=== PATIENT | female | born 1950 | race Caucasian/White ===

== ENCOUNTER 2023-09-13 12:11 | Inpatient (IN) | payer MEDICARE ==
[2023-09-13] VITALS (53 sets, daily range): BP systolic 74–139; BP diastolic 46–93; PULSE 81–157; RESP 22–39; O2SAT 84–98
[~2023-09-13] VITALS: Ht 182.9 cm; Wt 76.2 kg
[~2023-09-13 12:11] MED LIST: ALBU0.63 IH; AMLO-257 PO; ATOR10 PO; AZIT500T4 PO; BUDE0.5A3 IH; FLUT1BLS3 IH; LOSA50TA64 PO; OMEP40CA21 PO; PRAV40TA3 PO; PRED20B PO; ROCURONIUM BROMIDE 10MG/1ML 5ML VL IV ONE
[2023-09-13] MEDS: IPRATROPIUM/ALBUTEROL SULFATE 3 ML SOLUTION IH ONE (12:31)
[2023-09-13] MEDS: SOLU-MEDROL 125MG VIAL IVP ONE (12:34)
[2023-09-13 12:45] LABS: ABG BASE EXCESS -5.5 mmol/L (-2.0-3.0); ABG HCO3 19.7 mmol/L (21.0-28.0); ABG OXYGEN SATURATION 82.8 % (95.0-99.0); ABG PCO2 38 mmHg (32-45); ABG PH 7.335 (7.35-7.450); CARBON MONOXIDE 0.8; PO2, ARTERIAL BG 50.6 mmHg (83.0-108.0); VENT MODE, BG NC (ROOM AIR)
[2023-09-13 12:55] LABS: BASOPHILS # (AUTO) 0.02 K/uL (0.00-0.20); BASOPHILS % (AUTO) 0.3 % (0.0-5.0); EOSINOPHILS # (AUTO) 0.01 K/uL (0.00-0.70); EOSINOPHILS % (AUTO) 0.1 % (0.0-8.0); HEMATOCRIT 43.3 % (36-48); LYMPHOCYTES # (AUTO) 0.1 K/uL (1.0-4.8); LYMPHOCYTES % (AUTO) 1.2 % (21.0-51.0); MEAN CORPUSCULAR HEMOGLOBIN 30.2 pg (27.0-33.0); MEAN CORPUSCULAR HGB CONC 33.3 g/dL (32.0-36.0); MEAN CORPUSCULAR VOLUME 90.8 fL (79-99); MONOCYTES # (AUTO) 0.1 K/uL (0.1-1.0); MONOCYTES % (AUTO) 1.5 % (3.0-13.0); NEUTROPHILS % (AUTO) 95.5 % (40.0-77.0); PLATELET COUNT (AUTO) 163 K/uL (130-400); RED BLOOD CELL COUNT(AUTO) 4.77 MIL/uL (4.00-5.50); RED CELL DISTRIBUTION WIDTH 13.7 % (11.0-15.5); WHITE BLOOD COUNT (AUTO) 7.3 K/uL (4.8-10.8)
[2023-09-13 13:13] LABS: ALBUMIN 2.1 g/dL (3.5-5.0); BILIRUBIN,TOTAL 0.8 mg/dL (0.2-1.0); CREATININE 1.7 mg/dL (0.5-1.0); MAGNESIUM 1.4 mg/dL (1.80-2.40); POTASSIUM 3.6 mmol/L (3.5-5.1); TOTAL PROTEIN, SERUM 5.7 g/dL (6.0-8.3)
[2023-09-13] MEDS: CEFEPIME HCL 2 GM VIAL IVPB SCH (13:15)
[2023-09-13 13:26] LABS: B-TYPE NATRIURETIC PEPTIDE 167 pg/mL (0-100)
[2023-09-13] MEDS: AZITHROMYCIN 250 MG TABLET PO ONE (13:32)
[2023-09-13] MEDS: 0.9%NACL 1000ML 1,000 ML IV ONE ×2 (13:52→14:27)
[2023-09-13] MEDS: DILTIAZEM 25MG INJ IVP ONE ×2 (14:07→14:29)
[2023-09-13] MEDS ORDERED: ROCURONIUM BROMIDE 10MG/1ML 5ML VL IV ONE (14:11)
[2023-09-13] MEDS: MAGNESIUM 2GM PREMIX 50ML 50 ML IV ONE (14:45)
[2023-09-13] MEDS ORDERED: 0.9%NACL 50ML IV SCH (15:30)
[2023-09-13 15:41] LABS: ABG BASE EXCESS -7.9 mmol/L (-2.0-3.0); ABG HCO3 18.6 mmol/L (21.0-28.0); ABG OXYGEN SATURATION 87.2 % (95.0-99.0); ABG PCO2 42 mmHg (32-45); ABG PH 7.269 (7.35-7.450); PO2, ARTERIAL BG 59.2 mmHg (83.0-108.0); VENT MODE, BG HFNC (ROOM AIR)
[2023-09-13] MEDS: MIDAZOLAM HCL 1 MG/ML 2ML VIAL IVP ONE (15:50)
[2023-09-13] MEDS ORDERED: DEXMEDETOMIDINE 400MCG/NS100ML IV SCH (16:00)
[2023-09-13] MEDS: DEXMEDETOMIDINE 400MCG/NS100ML IV SCH (16:01)
[2023-09-13] MEDS: ASPIRIN 81MG CHEW TAB PO ONE (16:01)
[2023-09-13] MEDS: METOPROLOL TARTRATE 1 MG/ML 5ML VIAL IV PRN (16:12)
[2023-09-13] MEDS: ZOSYN 3.375GM +NS 50ML IVPB SCH (16:20)
[2023-09-13] MEDS: 0.9%NACL 1000ML 1,000 ML IV SCH (16:20)
[2023-09-13] MEDS ORDERED: ENOXAPARIN SODIUM 60 MG/0.6 ML SQ SCH (16:30)
[2023-09-13] MEDS: ASPIRIN 300 MG SUPPOSITORY PR SCH (16:30)
[2023-09-13 16:44] LABS: INR 0.97 (0.85-1.15); PROTHROMBIN TIME 11.5 SEC (9.6-11.6)
[2023-09-13 16:45] LABS: PARTIAL THROMBOPLASTIN TIME 35.5 SEC (26.3-35.5)
[2023-09-13 16:52] LABS: HEMOGLOBIN A1C 5.8 % (4.0-6.0)
[2023-09-13] MEDS: HEPARIN 25,000 UNITS/250ML D5W 250 ML IV SCH (17:23)
[2023-09-13] MEDS: HEPARIN 5,000 UNIT VIAL ONE (17:23)
[2023-09-13 17:48] LABS: THYROID STIMULATING HORMONE 1.85 uIU/mL (0.36-3.74)
[2023-09-13] MEDS ORDERED: IPRATROPIUM 0.5 MG/2.5 ML INH IH SCH (18:00)
[2023-09-13] MEDS ORDERED: SOLU-MEDROL 40MG VIAL IVP SCH (18:00)
[2023-09-13] MEDS: SOLU-MEDROL 40MG VIAL IVP SCH (18:16)
[2023-09-13] MEDS: IPRATROPIUM 0.5 MG/2.5 ML INH IH SCH (18:54)
[2023-09-13] MEDS: BUDESONIDE 0.5 MG/2 ML INH IH SCH (18:54)
[2023-09-13] MEDS: NOREPINEPHRIN 4MG/NS 250ML 250 ML IV ONE (18:56)
[2023-09-13] MEDS: ATORVASTATIN 40 MG TABLET PO SCH (20:37)
[2023-09-13] MEDS: NOREPINEPHRIN 4MG/NS 250ML 250 ML IV SCH (20:48)
[2023-09-13] MEDS: FAMOTIDINE 20MG VIAL IV SCH (21:00)
[2023-09-13] MEDS: HALOPERIDOL 1 MG TABLET PO SCH (22:00)
[2023-09-13 22:03] LABS: ABG BASE EXCESS -10.5 mmol/L (-2.0-3.0); ABG HCO3 17.7 mmol/L (21.0-28.0); ABG OXYGEN SATURATION 98.1 % (95.0-99.0); ABG PCO2 48 mmHg (32-45); ABG PH 7.188 (7.35-7.450); DEVICE COMMENT RR RN MANNY; PO2, ARTERIAL BG 138.4 mmHg (83.0-108.0)
[2023-09-13 23:53] LABS: PROTHROMBIN TIME 11.8 SEC (9.6-11.6)
[2023-09-13 23:56] LABS: ABG BASE EXCESS -9.1 mmol/L (-2.0-3.0); ABG HCO3 19.2 mmol/L (21.0-28.0); ABG OXYGEN SATURATION 97.2 % (95.0-99.0); ABG PCO2 51 mmHg (32-45); ABG PH 7.197 (7.35-7.450); DEVICE COMMENT RR RN MANNY; PO2, ARTERIAL BG 115.1 mmHg (83.0-108.0); VENT MODE, BG BIPAP 16,8 (ROOM AIR)
[2023-09-14] VITALS (143 sets, daily range): BP systolic 71–137; BP diastolic 34–118; PULSE 56–138; RESP 15–46; TEMP 98.6–98.7; O2SAT 89–98
[2023-09-14 00:17] LABS: PARTIAL THROMBOPLASTIN TIME 112.6 SEC (26.3-35.5)
[2023-09-14] MEDS: LACTATED RINGERS 1000ML 1,000 ML IV SCH (00:43)
[2023-09-14] MEDS: LACTATED RINGERS 1000ML 500 ML IV ONE (00:43)
[2023-09-14] MEDS: MAGNESIUM 2GM PREMIX 50ML 50 ML IV ONE (00:46)
[2023-09-14] MEDS: MAGNESIUM 2GM PREMIX 50ML 50 ML IV SCH (00:46)
[2023-09-14 03:15] LABS: ABG BASE EXCESS -7.7 mmol/L (-2.0-3.0); ABG HCO3 19.5 mmol/L (21.0-28.0); ABG OXYGEN SATURATION 98.5 % (95.0-99.0); ABG PCO2 47 mmHg (32-45); ABG PH 7.241 (7.35-7.450); CARBON MONOXIDE 0.3; DEVICE COMMENT RR RN MANNY; HHb 1.5; PO2, ARTERIAL BG 148.9 mmHg (83.0-108.0)
[2023-09-14 04:28] LABS: BASOPHILS # (AUTO) 0.01 K/uL (0.00-0.20); BASOPHILS % (AUTO) 0.1 % (0.0-5.0); HEMATOCRIT 36.7 % (36-48); IMMATURE GRANULOCYTE ABSOLUTE 0.24 K/uL (0-1); LYMPHOCYTES # (AUTO) 0.1 K/uL (1.0-4.8); LYMPHOCYTES % (AUTO) 0.7 % (21.0-51.0); MEAN CORPUSCULAR HEMOGLOBIN 30.5 pg (27.0-33.0); MEAN CORPUSCULAR HGB CONC 31.9 g/dL (32.0-36.0); MEAN CORPUSCULAR VOLUME 95.6 fL (79-99); MONOCYTES # (AUTO) 0.1 K/uL (0.1-1.0); MONOCYTES % (AUTO) 0.7 % (3.0-13.0); NEUTROPHILS % (AUTO) 96.7 % (40.0-77.0); NUCLEATED RED BLOOD CELLS 0.3 % (0.0-0.19); PLATELET COUNT (AUTO) 142 K/uL (130-400); RED BLOOD CELL COUNT(AUTO) 3.84 MIL/uL (4.00-5.50); RED CELL DISTRIBUTION WIDTH 14.1 % (11.0-15.5); WHITE BLOOD COUNT (AUTO) 13.5 K/uL (4.8-10.8)
[2023-09-14 04:38] LABS: INR 1.01 (0.85-1.15); PROTHROMBIN TIME 11.9 SEC (9.6-11.6)
[2023-09-14 04:50] LABS: CREATININE 1.8 mg/dL (0.5-1.0); MAGNESIUM 2.5 mg/dL (1.80-2.40); POTASSIUM 3.9 mmol/L (3.5-5.1)
[2023-09-14 05:03] LABS: BAND NEUTROPHILS % (MANUAL) 17 % (0-2); MAN.DIFF COMMENT-IMPRESSION MANUAL DIFFERENTIAL; SEGMENTED NEUTROPHILS % 83 % (40-70); TOTAL CELLS COUNTED 100; WBC MORPHOLOGY TOXIC GRANULATION 2+
[2023-09-14 05:07] LABS: PARTIAL THROMBOPLASTIN TIME 95.5 SEC (26.3-35.5)
[2023-09-14] MEDS: ASPIRIN 81MG CHEW TAB PO SCH (08:01)
[2023-09-14] MEDS ORDERED: ENOXAPARIN SODIUM 30 MG/0.3 ML SQ SCH (09:00)
[2023-09-14 09:40] LABS: SARS-CoV-2, RNA, NAAT NEGATIVE SARS CoV-2 (NEGATIVE)
[2023-09-14] MEDS ORDERED: VANCOMYCIN PROTOCOL PER PHARMACY IV SCH (10:00)
[2023-09-14 10:01] LABS: INFLUENZA TYPE A Negative For Type A (NEGATIVE); INFLUENZA TYPE B Negative For Type B (NEGATIVE)
[2023-09-14] MEDS: CEFEPIME HCL 1 GM VIAL IVPB SCH (10:20)
[2023-09-14] MEDS: LEVOFLOXACIN 500 MG/D5W 100 ML 100 ML IV ONE (10:21)
[2023-09-14] MEDS: PHENYLEPHRINE HCL 10 MG in 0.9% NACL 250ML 250 ML IV PRN (10:38)
[2023-09-14] MEDS ORDERED: AMIODARONE 900MG VIAL 540 MG in DEXTROSE 5%-WATER 300 ML IV SCH (13:00)
[2023-09-14] MEDS: VANCOMYCIN 750MG VIAL IVPB SCH (13:16)
[2023-09-14] MEDS: AMIODARONE 150MG VIAL 150 MG in DEXTROSE 5%-WATER 100 ML IV SCH (13:17)
[2023-09-14] MEDS: AMIODARONE 900MG VIAL 360 MG in DEXTROSE 5%-WATER 200 ML IV SCH (13:35)
[2023-09-14] MEDS: PHENYLEPHRINE HCL 100 MG in 0.9% NACL 250ML 250 ML IV SCH (13:39)
[2023-09-14 15:30] LABS: ALBUMIN 1.5 g/dL (3.5-5.0); BILIRUBIN,TOTAL 0.5 mg/dL (0.2-1.0); CREATININE 2.3 mg/dL (0.5-1.0); TOTAL PROTEIN, SERUM 4.9 g/dL (6.0-8.3)
[2023-09-14] MEDS ORDERED: AZITHROMYCIN 500MG+NS 250ML 250 ML IVPB SCH (15:30)
[2023-09-14 22:19] LABS: ABG BASE EXCESS -9.9 mmol/L (-2.0-3.0); ABG HCO3 18.5 mmol/L (21.0-28.0); ABG OXYGEN SATURATION 92.4 % (95.0-99.0); ABG PCO2 51 mmHg (32-45); ABG PH 7.176 (7.35-7.450); CARBON MONOXIDE 0.3; HHb 7.5; PO2, ARTERIAL BG 79.1 mmHg (83.0-108.0)
[2023-09-14] MEDS: SODIUM BICARB 50MEQ 50ML VIAL 50 ML ONE (23:24)
[2023-09-14] MEDS: ENOXAPARIN SODIUM 60 MG/0.6 ML SQ SCH (23:24)
[2023-09-15] VITALS (102 sets, daily range): BP systolic 87–153; BP diastolic 34–98; PULSE 51–82; RESP 17–46; O2SAT 94–99
[2023-09-15] MEDS ORDERED: HALOPERIDOL DECAN(MONTHLY) 100 MG/ML IM PRN (01:00)
[2023-09-15] MEDS: HALOPERIDOL INJ 5 MG/ML VIAL ONE (01:21)
[2023-09-15] MEDS: HALOPERIDOL INJ 5 MG/ML VIAL IM PRN (01:38)
[2023-09-15] MEDS: LORAZEPAM 2 MG/ML 1 ML VIAL ONE (03:52)
[2023-09-15] MEDS: LORAZEPAM 2 MG/ML 1 ML VIAL IVP ONE (04:07)
[2023-09-15 04:30] LABS: BASOPHILS # (AUTO) 0.02 K/uL (0.00-0.20); BASOPHILS % (AUTO) 0.1 % (0.0-5.0); EOSINOPHILS # (AUTO) 0.01 K/uL (0.00-0.70); IMMATURE GRANULOCYTE ABSOLUTE 0.39 K/uL (0-1); LYMPHOCYTES # (AUTO) 0.3 K/uL (1.0-4.8); LYMPHOCYTES % (AUTO) 1.1 % (21.0-51.0); MEAN CORPUSCULAR HEMOGLOBIN 30.8 pg (27.0-33.0); MEAN CORPUSCULAR HGB CONC 32.6 g/dL (32.0-36.0); MEAN CORPUSCULAR VOLUME 94.4 fL (79-99); MONOCYTES # (AUTO) 0.2 K/uL (0.1-1.0); MONOCYTES % (AUTO) 0.7 % (3.0-13.0); NEUTROPHILS # (AUTO) 23.2 K/uL (1.8-7.7); NEUTROPHILS % (AUTO) 96.5 % (40.0-77.0); NUCLEATED RED BLOOD CELLS 0.1 % (0.0-0.19); PLATELET COUNT (AUTO) 163 K/uL (130-400); RED CELL DISTRIBUTION WIDTH 14.3 % (11.0-15.5); WHITE BLOOD COUNT (AUTO) 24.1 K/uL (4.8-10.8)
[2023-09-15 04:50] LABS: ABG BASE EXCESS -9.8 mmol/L (-2.0-3.0); ABG HCO3 19.2 mmol/L (21.0-28.0); ABG OXYGEN SATURATION 94.8 % (95.0-99.0); ABG PCO2 56 mmHg (32-45); ABG PH 7.155 (7.35-7.450); CARBON MONOXIDE 0.3; HHb 5.2; PO2, ARTERIAL BG 90.3 mmHg (83.0-108.0)
[2023-09-15 04:51] LABS: CREATININE 2.6 mg/dL (0.5-1.0); POTASSIUM 4.2 mmol/L (3.5-5.1)
[2023-09-15 05:41] LABS: LYMPHOCYTES % (MANUAL) 2 % (22-44); MAN.DIFF COMMENT-IMPRESSION MANUAL DIFFERENTIAL; MONOCYTES % (MANUAL) 1 % (2-9); SEGMENTED NEUTROPHILS % 97 % (40-70); TOTAL CELLS COUNTED 100
[2023-09-15 05:42] LABS: PLATELET MORPHOLOGY COMMENT ADEQUATE; WBC MORPHOLOGY NORMAL
[2023-09-15] MEDS ORDERED: ACETYLCYSTEINE 10% 100MG/ML 4ML VIAL IH SCH ×2 (08:00→18:00)
[2023-09-15] MEDS: SODIUM BICARB 50MEQ 50ML VIAL IV ONE ×2 (08:06→21:38)
[2023-09-15] MEDS: FUROSEMIDE 40MG VIAL IV ONE (08:07)
[2023-09-15 10:18] LABS: ABG BASE EXCESS -5.4 mmol/L (-2.0-3.0); ABG HCO3 22.1 mmol/L (21.0-28.0); ABG OXYGEN SATURATION 99.2 % (95.0-99.0); ABG PCO2 50 mmHg (32-45); ABG PH 7.261 (7.35-7.450); PO2, ARTERIAL BG 200.5 mmHg (83.0-108.0); VENT MODE, BG BIPAP 20-8 (ROOM AIR)
[2023-09-15] MEDS ORDERED: LEVOFLOXACIN 250 MG/D5W 50ML 50 ML IVPB SCH (11:00)
[2023-09-15] MEDS: VANCOMYCIN 500MG+NS 100ML 100 ML IV SCH (11:37)
[2023-09-15 13:13] LABS: ALBUMIN 1.4 g/dL (3.5-5.0); BILIRUBIN,TOTAL 0.4 mg/dL (0.2-1.0); CREATININE 2.9 mg/dL (0.5-1.0); POTASSIUM 4.5 mmol/L (3.5-5.1); TOTAL PROTEIN, SERUM 4.7 g/dL (6.0-8.3)
[2023-09-15] MEDS: DOXYCYCLINE 100MG+NS 250ML 250 ML IV SCH (14:20)
[2023-09-15] MEDS: THIAMINE HCL 100 MG/ML 2ML VIAL IVP SCH (14:20)
[2023-09-15 14:39] LABS: APPEARANCE,URINE CLEAR (CLEAR); BILIRUBIN,URINE SMALL mg/dL (NEGATIVE); COLOR,URINE YELLOW (YELLOW); GLUCOSE, URINE (UA) NEGATIVE (NEGATIVE); KETONES,URINE 5 mg/dL (NEGATIVE); LEUKOCYTE ESTERASE ,URINE NEGATIVE Leu/uL (NEGATIVE); NITRATE,URINE POSITIVE (NEGATIVE); OCCULT BLOOD,URINE TRACE-INTACT (NEGATIVE); PROTEIN,URINE 30 mg/dL (NEGATIVE); UROBILINOGEN,URINE 0.2 mg/dL (0.2-1.0)
[2023-09-15 14:41] LABS: ADD UA MICROSCOPIC YES
[2023-09-15] MEDS: ZIPRASIDONE MESYLATE 20 MG/VIAL IM SCH (15:00)
[2023-09-15 15:15] LABS: RBC,URINE 0-1 /HPF (0-1)
[2023-09-15 15:16] LABS: ARTIFACT None Seen /HPF (0-1); BACTERIA,URINE Moderate /HPF (None Seen); DIMORPHIC RBC URINE None Seen /HPF (0-1); RED BLOOD CELL CLUMP None Seen /HPF; WBC CLUMP None Seen /HPF (0-1); WBC,URINE 0-1 /HPF (0-1); YEAST,URINE BUDDING None Seen /HPF (None Seen)
[2023-09-15 15:17] LABS: YEAST,URINE HYPHAE None Seen /HPF (None Seen)
[2023-09-15] MEDS: DIAZEPAM 5 MG/ML 2 ML SYG IV PRN (15:21)
[2023-09-15 15:22] LABS: CHLORIDE,URINE RANDOM 26 mmol/L (110-250); CREATININE,URINE RANDOM 158.12 mg/dL (30-135); POTASSIUM,URINE RANDOM 36 mmol/L (25-125); SODIUM,URINE RANDOM < 13 mmol/l (40-220)
[2023-09-15] MEDS: ACETYLCYSTEINE 10% 100MG/ML 4ML VIAL IH SCH (18:20)
[2023-09-15] MEDS: ENOXAPARIN SODIUM 60 MG/0.6 ML SQ SCH (20:32)
[2023-09-15] MEDS ORDERED: FUROSEMIDE 40MG VIAL IV SCH (21:00)
[2023-09-15 21:10] LABS: ABG BASE EXCESS -6.7 mmol/L (-2.0-3.0); ABG HCO3 21.7 mmol/L (21.0-28.0); ABG PCO2 56 mmHg (32-45); ABG PH 7.203 (7.35-7.450); CARBON MONOXIDE 0.6; DEVICE COMMENT RR RN MANNY; HHb 5.9; PO2, ARTERIAL BG 81.8 mmHg (83.0-108.0); VENT MODE, BG ST 20-8 (ROOM AIR)
[2023-09-15] MEDS: SODIUM BICARB 50MEQ 50ML VIAL 100 ML ONE (21:38)
[2023-09-15] MEDS: CALCIUM GLUC 1GM/10ML VIAL IV ONE (21:38)
[2023-09-15 23:54] LABS: ABG HCO3 23.9 mmol/L (21.0-28.0); ABG OXYGEN SATURATION 95.2 % (95.0-99.0); ABG PCO2 55 mmHg (32-45); ABG PH 7.255 (7.35-7.450); PO2, ARTERIAL BG 87.5 mmHg (83.0-108.0)
[2023-09-15] MEDS: LINEZOLID 600 MG/ISO-OSM 300 ML IV SCH (23:58)
[2023-09-16] VITALS (106 sets, daily range): BP systolic 76–164; BP diastolic 36–97; PULSE 53–103; RESP 18–50; O2SAT 90–100
[2023-09-16] MEDS: IPRATROPIUM 0.5 MG/2.5 ML INH IH SCH (02:02)
[2023-09-16 03:48] LABS: ABG BASE EXCESS -3.6 mmol/L (-2.0-3.0); ABG HCO3 23.7 mmol/L (21.0-28.0); ABG OXYGEN SATURATION 93.6 % (95.0-99.0); ABG PCO2 52 mmHg (32-45); ABG PH 7.275 (7.35-7.450); CARBON MONOXIDE 0.5; DEVICE COMMENT RR RN MANNY; HHb 6.4; VENT MODE, BG BIPAP 20-8 (ROOM AIR)
[2023-09-16 04:33] LABS: CREATININE 2.6 mg/dL (0.5-1.0); MAGNESIUM 2.2 mg/dL (1.80-2.40); POTASSIUM 4.1 mmol/L (3.5-5.1)
[2023-09-16 04:37] LABS: INR <= 0.93 (0.85-1.15); PROTHROMBIN TIME 10.6 SEC (9.6-11.6)
[2023-09-16 04:38] LABS: PARTIAL THROMBOPLASTIN TIME 40.5 SEC (26.3-35.5)
[2023-09-16 04:43] LABS: BASOPHILS # (AUTO) 0.07 K/uL (0.00-0.20); BASOPHILS % (AUTO) 0.4 % (0.0-5.0); EOSINOPHILS # (AUTO) 0.01 K/uL (0.00-0.70); EOSINOPHILS % (AUTO) 0.1 % (0.0-8.0); HEMATOCRIT 34.4 % (36-48); IMMATURE GRANULOCYTE ABSOLUTE 0.22 K/uL (0-1); LYMPHOCYTES # (AUTO) 0.3 K/uL (1.0-4.8); LYMPHOCYTES % (AUTO) 1.7 % (21.0-51.0); MEAN CORPUSCULAR HEMOGLOBIN 30.3 pg (27.0-33.0); MEAN CORPUSCULAR HGB CONC 33.4 g/dL (32.0-36.0); MEAN CORPUSCULAR VOLUME 90.5 fL (79-99); MONOCYTES # (AUTO) 0.1 K/uL (0.1-1.0); MONOCYTES % (AUTO) 0.7 % (3.0-13.0); NEUTROPHILS # (AUTO) 15.9 K/uL (1.8-7.7); NEUTROPHILS % (AUTO) 95.8 % (40.0-77.0); PLATELET COUNT (AUTO) 101 K/uL (130-400); RED CELL DISTRIBUTION WIDTH 14.6 % (11.0-15.5); WHITE BLOOD COUNT (AUTO) 16.6 K/uL (4.8-10.8)
[2023-09-16] MEDS: METRONIDAZOLE 500MG/100ML BAG 100 ML IVPB SCH (05:35)
[2023-09-16] MEDS: ACETYLCYSTEINE 10% 100MG/ML 4ML VIAL IH SCH (06:30)
[2023-09-16] MEDS: DIAZEPAM 5 MG/ML 2 ML SYG IV PRN ×2 (11:49→17:59)
[2023-09-16 13:25] LABS: ABG BASE EXCESS -4.9 mmol/L (-2.0-3.0); ABG HCO3 22.4 mmol/L (21.0-28.0); ABG OXYGEN SATURATION 92.2 % (95.0-99.0); ABG PCO2 50 mmHg (32-45); ABG PH 7.268 (7.35-7.450); DEVICE COMMENT LISA NP RR; PO2, ARTERIAL BG 71.9 mmHg (83.0-108.0); VENT MODE, BG BIPAP 18-5 (ROOM AIR)
[2023-09-16] MEDS ORDERED: POTASSIUM CHLORIDE 10MEQ/100ML 100 ML IV PRN (16:00)
[2023-09-16] MEDS ORDERED: GLUCAGON 1MG KIT 1 MG ML IM PRN (16:00)
[2023-09-16] MEDS: DIAZEPAM 5 MG/ML 2 ML SYG ONE (16:00)
[2023-09-16] MEDS ORDERED: FENTANYL CITRATE PF 50 MCG/1 ML 2ML VIAL IVP PRN (16:00)
[2023-09-16] MEDS ORDERED: ROCURONIUM BROMIDE IV SCH (16:00)
[2023-09-16] MEDS ORDERED: [UNRECOGNIZED DRUG - OTHER] IV SCH (16:00)
[2023-09-16] MEDS ORDERED: MIDAZOLAM HCL 50 MG in 0.9%NACL 50ML 50 ML IV SCH (16:00)
[2023-09-16] MEDS: FLUCONAZOLE 200 MG/NS 100 ML 100 ML IV SCH (16:48)
[2023-09-16] MEDS: FENTANYL 2500MCG+NS 250ML 250 ML IV ONE (17:58)
[2023-09-16] MEDS: MIDAZOLAM 50MG-0.9% NS 50ML 50 ML IV SCH (17:58)
[2023-09-16] MEDS: ETOMIDATE 20MG VIAL IVP ONE (18:00)
[2023-09-16] MEDS: ONDANSETRON 4MG INJ IVP PRN (18:04)
[2023-09-16] MEDS: INSULIN HUMULIN R 100 UNIT/ML 3ML SQ SCH (18:04)
[2023-09-16 19:28] LABS: ABG BASE EXCESS -3.9 mmol/L (-2.0-3.0); ABG HCO3 20.5 mmol/L (21.0-28.0); ABG OXYGEN SATURATION 94.9 % (95.0-99.0); ABG PCO2 35 mmHg (32-45); ABG PH 7.383 (7.35-7.450); CARBON MONOXIDE 0.3; HHb 5.1; PO2, ARTERIAL BG 79.9 mmHg (83.0-108.0); VENT MODE, BG ACVC RR (ROOM AIR)
[2023-09-17] VITALS (85 sets, daily range): BP systolic 96–147; BP diastolic 51–76; PULSE 52–77; RESP 25–27; O2SAT 96–100
[2023-09-17] MEDS: IPRATROPIUM/ALBUTEROL SULFATE 3 ML SOLUTION IH ONE (00:18)
[2023-09-17] MEDS: FENTANYL 2500MCG+NS 250ML 250 ML IV PRN (03:50)
[2023-09-17 04:28] LABS: BASOPHILS # (AUTO) 0.11 K/uL (0.00-0.20); BASOPHILS % (AUTO) 0.6 % (0.0-5.0); HEMATOCRIT 37.1 % (36-48); IMMATURE GRANULOCYTE ABSOLUTE 0.26 K/uL (0-1); LYMPHOCYTES # (AUTO) 0.4 K/uL (1.0-4.8); LYMPHOCYTES % (AUTO) 1.8 % (21.0-51.0); MEAN CORPUSCULAR HEMOGLOBIN 30.1 pg (27.0-33.0); MEAN CORPUSCULAR HGB CONC 34.2 g/dL (32.0-36.0); MEAN CORPUSCULAR VOLUME 87.9 fL (79-99); MONOCYTES # (AUTO) 0.2 K/uL (0.1-1.0); MONOCYTES % (AUTO) 0.8 % (3.0-13.0); NEUTROPHILS # (AUTO) 18.7 K/uL (1.8-7.7); NEUTROPHILS % (AUTO) 95.5 % (40.0-77.0); NUCLEATED RED BLOOD CELLS 0.2 % (0.0-0.19); PLATELET COUNT (AUTO) 96 K/uL (130-400); RED BLOOD CELL COUNT(AUTO) 4.22 MIL/uL (4.00-5.50); RED CELL DISTRIBUTION WIDTH 14.3 % (11.0-15.5); WHITE BLOOD COUNT (AUTO) 19.6 K/uL (4.8-10.8)
[2023-09-17 05:04] LABS: CREATININE 2.7 mg/dL (0.5-1.0); PHOSPHORUS 6.4 mg/dL (2.5-4.9); POTASSIUM 4.2 mmol/L (3.5-5.1)
[2023-09-17 07:43] LABS: ABG BASE EXCESS -1.9 mmol/L (-2.0-3.0); ABG OXYGEN SATURATION 97.5 % (95.0-99.0); ABG PCO2 40 mmHg (32-45); ABG PH 7.381 (7.35-7.450); CARBON MONOXIDE 0.3; DEVICE COMMENT RRMIRKA; HHb 2.5; PO2, ARTERIAL BG 109.6 mmHg (83.0-108.0)
[2023-09-17] MEDS ORDERED: HEPARIN 25,000 UNITS/250ML D5W 250 ML IV SCH (11:30)
[2023-09-17] MEDS: 0.9%NACL 1000ML 1,000 ML IV SCH (13:53)
[2023-09-17] MEDS: 0.9%NACL 1000ML 1,461 ML IV ONE (14:17)
[2023-09-17] MEDS: M.V.I. IV [ADULT] 10 ML, FOLIC ACID 1 MG, THIAMINE HCL 100 MG in 0.9%NACL 1000ML 1,000 ML IV SCH (20:23)
[2023-09-17] MEDS: CHLORHEXIDINE GLUCONATE 15 ML MOUTHWASH MM SCH (22:12)
[2023-09-18] VITALS (83 sets, daily range): BP systolic 87–164; BP diastolic 47–82; PULSE 59–103; RESP 25–29; O2SAT 92–100
[2023-09-18 04:15] LABS: HEMATOCRIT 31.9 % (36-48); MEAN CORPUSCULAR HEMOGLOBIN 30.7 pg (27.0-33.0); MEAN CORPUSCULAR HGB CONC 33.5 g/dL (32.0-36.0); MEAN CORPUSCULAR VOLUME 91.7 fL (79-99); NUCLEATED RED BLOOD CELLS 0.2 % (0.0-0.19); PLATELET COUNT (AUTO) 79 K/uL (130-400); RED BLOOD CELL COUNT(AUTO) 3.48 MIL/uL (4.00-5.50); RED CELL DISTRIBUTION WIDTH 14.6 % (11.0-15.5); WHITE BLOOD COUNT (AUTO) 11.5 K/uL (4.8-10.8)
[2023-09-18 04:29] LABS: ALBUMIN 1.1 g/dL (3.5-5.0); BILIRUBIN,TOTAL 0.4 mg/dL (0.2-1.0); CREATININE 2.5 mg/dL (0.5-1.0); PHOSPHORUS 6.3 mg/dL (2.5-4.9); POTASSIUM 4.4 mmol/L (3.5-5.1); TOTAL PROTEIN, SERUM 4.1 g/dL (6.0-8.3)
[2023-09-18 04:43] LABS: LYMPHOCYTES % (MANUAL) 2 % (22-44); MAN.DIFF COMMENT-IMPRESSION MANUAL DIFFERENTIAL; MONOCYTES % (MANUAL) 2 % (2-9); SEGMENTED NEUTROPHILS % 96 % (40-70); TOTAL CELLS COUNTED 100
[2023-09-18 04:44] LABS: PLATELET MORPHOLOGY COMMENT DECREASED
[2023-09-18 07:20] LABS: ABG PCO2 39 mmHg (32-45); ABG PH 7.318 (7.35-7.450)
[2023-09-18 07:21] LABS: ABG HCO3 19.6 mmol/L (21.0-28.0); ABG OXYGEN SATURATION 91.1 % (95.0-99.0); PO2, ARTERIAL BG 64.7 mmHg (83.0-108.0); VENT MODE, BG AC (ROOM AIR)
[2023-09-18] MEDS: ACETYLCYSTEINE 10% 100MG/ML 4ML VIAL IH SCH (07:30)
[2023-09-18] MEDS: SODIUM BICARB 50MEQ 50ML VIAL IV ONE (08:44)
[2023-09-18] MEDS: LEVOFLOXACIN 500 MG/D5W 100 ML 100 ML IV SCH (08:45)
[2023-09-18] MEDS: IPRATROPIUM 0.5 MG/2.5 ML INH IH ONE (11:02)
[2023-09-18] MEDS: IPRATROPIUM 0.5 MG/2.5 ML INH IH SCH (11:03)
[2023-09-18] MEDS ORDERED: ROCURONIUM BROMIDE 100 MG in 0.9%NACL 100ML 100 ML IV SCH (14:00)
[2023-09-18] MEDS: MIDAZOLAM HCL 1 MG/ML 2ML VIAL ONE (14:16)
[2023-09-18] MEDS ORDERED: PHARMACY COMMUNICATION MISC SCH ×2 (14:30→18:00)
[2023-09-18] MEDS: MIDAZOLAM HCL 1 MG/ML 2ML VIAL IVP ONE (15:09)
[2023-09-18] MEDS ORDERED: COMPOUND IV MISC 1 EACH IVSOLN MISC PRN (18:30)
[2023-09-18] MEDS ORDERED: COMPOUND IV REFRIGERATED 1 EACH IVSOLN MISC PRN (18:30)
[2023-09-18] MEDS: DIAZEPAM 5 MG/ML 2 ML SYG IVP ONE (20:06)
[2023-09-18] MEDS: M.V.I. IV [ADULT] 10 ML, FOLIC ACID 1 MG, THIAMINE HCL 100 MG in 0.9%NACL 1000ML 1,000 ML IV SCH (21:54)
[2023-09-18] MEDS: METOCLOPRAMIDE 10 MG/2 ML VIAL IV SCH (21:58)
[2023-09-18] MEDS: ARTIFICIAL TEARS 3.5 GM OINTMENT OU SCH (22:00)
[2023-09-19] VITALS (100 sets, daily range): BP systolic 94–150; BP diastolic 49–95; PULSE 7–142; RESP 12–28; O2SAT 88–99
[2023-09-19 03:58] LABS: BASOPHILS # (AUTO) 0.02 K/uL (0.00-0.20); BASOPHILS % (AUTO) 0.2 % (0.0-5.0); HEMATOCRIT 31.3 % (36-48); IMMATURE GRANULOCYTE ABSOLUTE 0.11 K/uL (0-1); LYMPHOCYTES # (AUTO) 0.2 K/uL (1.0-4.8); MEAN CORPUSCULAR HEMOGLOBIN 29.9 pg (27.0-33.0); MEAN CORPUSCULAR HGB CONC 33.2 g/dL (32.0-36.0); MEAN CORPUSCULAR VOLUME 89.9 fL (79-99); MONOCYTES # (AUTO) 0.3 K/uL (0.1-1.0); MONOCYTES % (AUTO) 2.5 % (3.0-13.0); NEUTROPHILS # (AUTO) 11.5 K/uL (1.8-7.7); NEUTROPHILS % (AUTO) 94.4 % (40.0-77.0); NUCLEATED RED BLOOD CELLS 0.2 % (0.0-0.19); PLATELET COUNT (AUTO) 104 K/uL (130-400); RED BLOOD CELL COUNT(AUTO) 3.48 MIL/uL (4.00-5.50); RED CELL DISTRIBUTION WIDTH 14.9 % (11.0-15.5); WHITE BLOOD COUNT (AUTO) 12.2 K/uL (4.8-10.8)
[2023-09-19 04:10] LABS: ALBUMIN 1.2 g/dL (3.5-5.0); BILIRUBIN,TOTAL 0.4 mg/dL (0.2-1.0); CREATININE 2.1 mg/dL (0.5-1.0); MAGNESIUM 3.2 mg/dL (1.80-2.40); PHOSPHORUS 5.7 mg/dL (2.5-4.9); POTASSIUM 4.3 mmol/L (3.5-5.1); TOTAL PROTEIN, SERUM 4.2 g/dL (6.0-8.3)
[2023-09-19 07:04] LABS: ABG BASE EXCESS -1.7 mmol/L (-2.0-3.0); ABG HCO3 23.7 mmol/L (21.0-28.0); ABG PCO2 42 mmHg (32-45); ABG PH 7.366 (7.35-7.450); PO2, ARTERIAL BG 84.1 mmHg (83.0-108.0); VENT MODE, BG AC (ROOM AIR)
[2023-09-19] MEDS: ENOXAPARIN SODIUM 30 MG/0.3 ML SQ ONE (12:32)
[2023-09-19] MEDS: ASPIRIN 325MG TAB PO ONE (16:49)
[2023-09-19] MEDS: METOPROLOL TARTRATE 1 MG/ML 5ML VIAL IV SCH (16:49)
[2023-09-19] MEDS: HEPARIN 25,000 UNITS/250ML D5W 250 ML IV SCH (17:09)
[2023-09-19 19:08] LABS: ABG HCO3 23.6 mmol/L (21.0-28.0); ABG OXYGEN SATURATION 84.6 % (95.0-99.0); ABG PCO2 54 mmHg (32-45); ABG PH 7.257 (7.35-7.450); CARBON MONOXIDE 0.8; HHb 15.2; PO2, ARTERIAL BG 56.8 mmHg (83.0-108.0); VENT MODE, BG AC VC (ROOM AIR)
[2023-09-19] MEDS: SOLU-MEDROL 40MG VIAL IVP SCH (23:55)
[2023-09-20] VITALS (64 sets, daily range): BP systolic 89–150; BP diastolic 50–84; PULSE 61–95; RESP 23–26; O2SAT 74–100
[2023-09-20 01:30] LABS: BASOPHILS # (AUTO) 0.02 K/uL (0.00-0.20); BASOPHILS % (AUTO) 0.1 % (0.0-5.0); HEMATOCRIT 31.5 % (36-48); IMMATURE GRANULOCYTE ABSOLUTE 0.19 K/uL (0-1); LYMPHOCYTES # (AUTO) 0.3 K/uL (1.0-4.8); LYMPHOCYTES % (AUTO) 1.9 % (21.0-51.0); MEAN CORPUSCULAR HGB CONC 33.3 g/dL (32.0-36.0); MEAN CORPUSCULAR VOLUME 92.9 fL (79-99); MONOCYTES # (AUTO) 0.6 K/uL (0.1-1.0); MONOCYTES % (AUTO) 4.3 % (3.0-13.0); NEUTROPHILS # (AUTO) 12.6 K/uL (1.8-7.7); NEUTROPHILS % (AUTO) 92.3 % (40.0-77.0); NUCLEATED RED BLOOD CELLS 0.2 % (0.0-0.19); PLATELET COUNT (AUTO) 117 K/uL (130-400); RED BLOOD CELL COUNT(AUTO) 3.39 MIL/uL (4.00-5.50); RED CELL DISTRIBUTION WIDTH 14.8 % (11.0-15.5); WHITE BLOOD COUNT (AUTO) 13.6 K/uL (4.8-10.8)
[2023-09-20 01:44] LABS: ALBUMIN 1.2 g/dL (3.5-5.0); BILIRUBIN,TOTAL 0.3 mg/dL (0.2-1.0); CREATININE 1.9 mg/dL (0.5-1.0); POTASSIUM 4.6 mmol/L (3.5-5.1); TOTAL PROTEIN, SERUM 4.2 g/dL (6.0-8.3)
[2023-09-20 06:21] LABS: ABG BASE EXCESS -4.3 mmol/L (-2.0-3.0); ABG HCO3 20.9 mmol/L (21.0-28.0); ABG OXYGEN SATURATION 88.9 % (95.0-99.0); ABG PCO2 39 mmHg (32-45); ABG PH 7.348 (7.35-7.450); CARBON MONOXIDE 0.4; DEVICE COMMENT RR SANDRA; PO2, ARTERIAL BG 62.7 mmHg (83.0-108.0); VENT MODE, BG AC-VC (ROOM AIR)
[2023-09-20] MEDS: ASPIRIN 81MG CHEW TAB PO SCH (08:22)
[2023-09-20] MEDS ORDERED: ENOXAPARIN SODIUM 30 MG/0.3 ML SQ SCH (09:00)
[2023-09-20] MEDS ORDERED: LACTULOSE 20 GM/30 ML UDCUP PO PRN (13:30)
[2023-09-20] MEDS ORDERED: POLYETHYLENE GLYCOL 3350 17 GM POWD.PACK PO PRN (13:30)
[2023-09-20] MEDS: LACTULOSE 20 GM/30 ML UDCUP PO ONE (13:58)
[2023-09-20] MEDS: POLYETHYLENE GLYCOL 3350 17 GM POWD.PACK PO ONE (13:58)
[2023-09-20] MEDS: BALSAM PERU/CASTOR OIL 60 GM TUBE TP SCH (20:17)
[2023-09-20 23:16] LABS: APPEARANCE,URINE TURBID (CLEAR); BILIRUBIN,URINE NEGATIVE (NEGATIVE); COLOR,URINE YELLOW (YELLOW); GLUCOSE, URINE (UA) NEGATIVE (NEGATIVE); KETONES,URINE NEGATIVE (NEGATIVE); LEUKOCYTE ESTERASE ,URINE NEGATIVE Leu/uL (NEGATIVE); NITRATE,URINE NEGATIVE (NEGATIVE); OCCULT BLOOD,URINE SMALL (NEGATIVE); PH,URINE 5.5 (5.0-8.0); PROTEIN,URINE 20 mg/dL (NEGATIVE); UROBILINOGEN,URINE 0.2 mg/dL (0.2-1.0)
[2023-09-20 23:17] LABS: ADD UA MICROSCOPIC YES
[2023-09-20 23:26] LABS: BACTERIA,URINE RARE /HPF (None Seen); MUCUS,URINE RARE LPF (None Seen); SQUAMOUS EPITHELIAL CELL,UR RARE /HPF (0-2)
[2023-09-20 23:47] LABS: URIC ACID CRYSTALS,URINE Moderate /LPF (None Seen)
[2023-09-21] VITALS (41 sets, daily range): BP systolic 102–164; BP diastolic 55–106; PULSE 61–130; RESP 15–28; O2SAT 91–99
[2023-09-21 03:56] LABS: BASOPHILS # (AUTO) 0.01 K/uL (0.00-0.20); BASOPHILS % (AUTO) 0.1 % (0.0-5.0); HEMATOCRIT 25.5 % (36-48); IMMATURE GRANULOCYTE ABSOLUTE 0.13 K/uL (0-1); LYMPHOCYTES # (AUTO) 0.2 K/uL (1.0-4.8); LYMPHOCYTES % (AUTO) 1.6 % (21.0-51.0); MEAN CORPUSCULAR HEMOGLOBIN 30.2 pg (27.0-33.0); MEAN CORPUSCULAR HGB CONC 33.3 g/dL (32.0-36.0); MEAN CORPUSCULAR VOLUME 90.7 fL (79-99); MONOCYTES # (AUTO) 0.5 K/uL (0.1-1.0); MONOCYTES % (AUTO) 4.5 % (3.0-13.0); NEUTROPHILS # (AUTO) 10.8 K/uL (1.8-7.7); NEUTROPHILS % (AUTO) 92.7 % (40.0-77.0); NUCLEATED RED BLOOD CELLS 0.3 % (0.0-0.19); PLATELET COUNT (AUTO) 90 K/uL (130-400); RED BLOOD CELL COUNT(AUTO) 2.81 MIL/uL (4.00-5.50); RED CELL DISTRIBUTION WIDTH 14.9 % (11.0-15.5); WHITE BLOOD COUNT (AUTO) 11.6 K/uL (4.8-10.8)
[2023-09-21 04:13] LABS: ALBUMIN 1.2 g/dL (3.5-5.0); BILIRUBIN,TOTAL 0.3 mg/dL (0.2-1.0); CREATININE 1.6 mg/dL (0.5-1.0); MAGNESIUM 2.8 mg/dL (1.80-2.40); POTASSIUM 4.7 mmol/L (3.5-5.1); TOTAL PROTEIN, SERUM 3.8 g/dL (6.0-8.3)
[2023-09-21] MEDS: PANTOPRAZOLE 40 MG/VIAL IVP SCH (08:42)
[2023-09-21 12:18] LABS: ABG BASE EXCESS -3.3 mmol/L (-2.0-3.0); ABG HCO3 21.2 mmol/L (21.0-28.0); ABG OXYGEN SATURATION 67.4 % (95.0-99.0); ABG PCO2 37 mmHg (32-45); ABG PH 7.379 (7.35-7.450); DEVICE COMMENT RN LEO; PO2, ARTERIAL BG < 45.0 mmHg (83.0-108.0); VENT MODE, BG CPAP PS10 (ROOM AIR)
[2023-09-21 12:25] LABS: ABG BASE EXCESS -3.1 mmol/L (-2.0-3.0); ABG HCO3 20.5 mmol/L (21.0-28.0); ABG OXYGEN SATURATION 94.4 % (95.0-99.0); ABG PCO2 33 mmHg (32-45); ABG PH 7.413 (7.35-7.450); CPAP, BG 5 cm H2O; DEVICE COMMENT RN LEO; PO2, ARTERIAL BG 69.8 mmHg (83.0-108.0); VENT MODE, BG CPAP PS10 (ROOM AIR)
[2023-09-21 13:36] LABS: INR 1.15 (0.85-1.15); PROTHROMBIN TIME 13.4 SEC (9.6-11.6)
[2023-09-21 13:38] LABS: PARTIAL THROMBOPLASTIN TIME 25.5 SEC (26.3-35.5)
[2023-09-21] MEDS ORDERED: DILTIAZEM 125 MG/25 ML INJ 125 MG in 0.9%NACL 100ML 100 ML IV PRN (18:00)
[2023-09-22] VITALS (29 sets, daily range): BP systolic 134–173; BP diastolic 67–113; PULSE 78–159; RESP 14–27; O2SAT 91–98
[2023-09-22 05:38] LABS: HEMATOCRIT 25.2 % (36-48); MEAN CORPUSCULAR HEMOGLOBIN 29.9 pg (27.0-33.0); MEAN CORPUSCULAR HGB CONC 31.7 g/dL (32.0-36.0); NUCLEATED RED BLOOD CELLS 0.1 % (0.0-0.19); PLATELET COUNT (AUTO) 169 K/uL (130-400); RED BLOOD CELL COUNT(AUTO) 2.68 MIL/uL (4.00-5.50)
[2023-09-22 05:55] LABS: ALBUMIN 1.5 g/dL (3.5-5.0); BILIRUBIN,TOTAL 0.4 mg/dL (0.2-1.0); CREATININE 1.5 mg/dL (0.5-1.0); MAGNESIUM 2.5 mg/dL (1.80-2.40); POTASSIUM 4.9 mmol/L (3.5-5.1); TOTAL PROTEIN, SERUM 4.4 g/dL (6.0-8.3)
[2023-09-22 05:59] LABS: % IRON SATURATION 68.9 % (22-44)
[2023-09-22 06:10] LABS: WHITE BLOOD COUNT (AUTO) 32.1 K/uL (4.8-10.8)
[2023-09-22 06:37] LABS: LYMPHOCYTES % (MANUAL) 1 % (22-44); MAN.DIFF COMMENT-IMPRESSION MANUAL DIFFERENTIAL; MONOCYTES % (MANUAL) 4 % (2-9); PLATELET MORPHOLOGY COMMENT ADEQUATE; SEGMENTED NEUTROPHILS % 95 % (40-70); TOTAL CELLS COUNTED 100
[2023-09-22 09:50] LABS: ABG HCO3 23.6 mmol/L (21.0-28.0); ABG OXYGEN SATURATION 94.1 % (95.0-99.0); ABG PCO2 36 mmHg (32-45); ABG PH 7.441 (7.35-7.450); DEVICE COMMENT RRLORNE; PO2, ARTERIAL BG 67.1 mmHg (83.0-108.0); VENT MODE, BG NC (ROOM AIR)
[2023-09-22] MEDS ORDERED: DEXTROSE 5%-WATER 1,000 ML IV SCH (11:30)
[2023-09-22] MEDS: METOPROLOL TARTRATE 25 MG TAB PO SCH (13:41)
[2023-09-22] MEDS: DEXTROSE 5%-WATER 1,000 ML IV SCH (13:41)
[2023-09-22] MEDS: 0.9%NACL 10ML VIAL IV SCH (20:44)
[2023-09-22] MEDS: ENOXAPARIN SODIUM 80 MG/0.8 ML SQ ONE (20:45)
[2023-09-23] VITALS (70 sets, daily range): BP systolic 149–188; BP diastolic 58–89; PULSE 81–106; RESP 18–38; O2SAT 89–97
[2023-09-23 04:22] LABS: HEMATOCRIT 21.8 % (36-48); MEAN CORPUSCULAR HEMOGLOBIN 30.4 pg (27.0-33.0); MEAN CORPUSCULAR HGB CONC 32.1 g/dL (32.0-36.0); MEAN CORPUSCULAR VOLUME 94.8 fL (79-99); NUCLEATED RED BLOOD CELLS 0.1 % (0.0-0.19); RED BLOOD CELL COUNT(AUTO) 2.3 MIL/uL (4.00-5.50); RED CELL DISTRIBUTION WIDTH 15.5 % (11.0-15.5)
[2023-09-23 04:25] LABS: WHITE BLOOD COUNT (AUTO) 33.7 K/uL (4.8-10.8)
[2023-09-23 05:02] LABS: ALBUMIN 1.6 g/dL (3.5-5.0); BILIRUBIN,TOTAL 0.4 mg/dL (0.2-1.0); CREATININE 1.2 mg/dL (0.5-1.0); MAGNESIUM 2.2 mg/dL (1.80-2.40); POTASSIUM 4.5 mmol/L (3.5-5.1); TOTAL PROTEIN, SERUM 4.3 g/dL (6.0-8.3)
[2023-09-23 05:54] LABS: HEMATOCRIT 21.5 % (36-48); MEAN CORPUSCULAR HEMOGLOBIN 30.6 pg (27.0-33.0); MEAN CORPUSCULAR VOLUME 92.7 fL (79-99); NUCLEATED RED BLOOD CELLS 0.1 % (0.0-0.19); PLATELET COUNT (AUTO) 196 K/uL (130-400); RED BLOOD CELL COUNT(AUTO) 2.32 MIL/uL (4.00-5.50); RED CELL DISTRIBUTION WIDTH 15.6 % (11.0-15.5)
[2023-09-23 06:05] LABS: WHITE BLOOD COUNT (AUTO) 36.2 K/uL (4.8-10.8)
[2023-09-23 06:28] LABS: LYMPHOCYTES % (MANUAL) 4 % (22-44); MONOCYTES % (MANUAL) 2 % (2-9); SEGMENTED NEUTROPHILS % 94 % (40-70); TOTAL CELLS COUNTED 100
[2023-09-23 06:29] LABS: MAN.DIFF COMMENT-IMPRESSION MANUAL DIFFERENTIAL; PLATELET MORPHOLOGY COMMENT ADEQUATE; WBC MORPHOLOGY SMUDGE CELLS 1+
[2023-09-23] MEDS ORDERED: RENAL DOSE IV PRN (08:00)
[2023-09-23] MEDS ORDERED: VANCOMYCIN PROTOCOL PER PHARMACY IV SCH (08:00)
[2023-09-23] MEDS ORDERED: MEROPENEM 500 MG in 0.9%NACL 100ML 100 ML IV SCH (08:00)
[2023-09-23] MEDS: MEROPENEM 1 GM/NS 100 CRCL 26-50 IV SCH (08:51)
[2023-09-23] MEDS: SOLU-MEDROL 40MG VIAL IVP SCH (08:52)
[2023-09-23] MEDS: INSULIN GLARGINE 100 UNITS/ML 10 ML VIAL SQ ONE (09:05)
[2023-09-23] MEDS: VANCOMYCIN 1.5 GM/250 ML BAG 250 ML IV SCH (12:39)
[2023-09-23] MEDS: FUROSEMIDE 20MG VIAL IV SCH (12:41)
[2023-09-23] MEDS: METOPROLOL TARTRATE 25 MG TAB PO SCH (14:49)
[2023-09-23 14:55] LABS: ABG BASE EXCESS 1.6 mmol/L (-2.0-3.0); ABG HCO3 24.9 mmol/L (21.0-28.0); ABG OXYGEN SATURATION 93.3 % (95.0-99.0); ABG PCO2 33 mmHg (32-45); ABG PH 7.496 (7.35-7.450); CARBON MONOXIDE 0; HHb 6.6; PO2, ARTERIAL BG 70.5 mmHg (83.0-108.0); VENT MODE, BG NC (ROOM AIR)
[2023-09-23] MEDS: INSULIN GLARGINE 100 UNITS/ML 10 ML VIAL SQ SCH (22:25)
[2023-09-24] VITALS (43 sets, daily range): BP systolic 105–168; BP diastolic 31–82; PULSE 72–99; RESP 17–31; O2SAT 89–100
[2023-09-24 10:33] LABS: MEAN CORPUSCULAR HEMOGLOBIN 30.4 pg (27.0-33.0); PLATELET COUNT (AUTO) 185 K/uL (130-400); RED BLOOD CELL COUNT(AUTO) 2.04 MIL/uL (4.00-5.50); RED CELL DISTRIBUTION WIDTH 15.9 % (11.0-15.5); WHITE BLOOD COUNT (AUTO) 27.1 K/uL (4.8-10.8)
[2023-09-24 10:52] LABS: POTASSIUM 4.8 mmol/L (3.5-5.1)
[2023-09-24 11:10] LABS: MAN.DIFF COMMENT-IMPRESSION MANUAL DIFFERENTIAL; MONOCYTES % (MANUAL) 3 % (2-9); PLATELET MORPHOLOGY COMMENT ADEQUATE; SEGMENTED NEUTROPHILS % 97 % (40-70); TOTAL CELLS COUNTED 100
[2023-09-24] MEDS: DEXTROSE 5%-WATER 1,000 ML IV SCH (11:31)
[2023-09-24 15:11] LABS: APPEARANCE,URINE CLOUDY (CLEAR); BILIRUBIN,URINE NEGATIVE (NEGATIVE); COLOR,URINE LIGHT-YELLOW (YELLOW); GLUCOSE, URINE (UA) 70 mg/dL (NEGATIVE); KETONES,URINE NEGATIVE (NEGATIVE); LEUKOCYTE ESTERASE ,URINE NEGATIVE Leu/uL (NEGATIVE); NITRATE,URINE NEGATIVE (NEGATIVE); OCCULT BLOOD,URINE LARGE (NEGATIVE); PROTEIN,URINE 30 mg/dL (NEGATIVE); UROBILINOGEN,URINE 0.2 mg/dL (0.2-1.0)
[2023-09-24 15:32] LABS: ADD UA MICROSCOPIC YES
[2023-09-24 15:38] LABS: BACTERIA,URINE FEW /HPF (None Seen); MUCUS,URINE RARE LPF (None Seen); RBC,URINE 51-100 /HPF (0-1); SQUAMOUS EPITHELIAL CELL,UR RARE /HPF (0-2); UNCLASSIFIED CRYSTAL 33 /HPF (None Seen); URIC ACID CRYSTALS,URINE RARE /LPF (None Seen); WBC CLUMP FEW /HPF (0-1); YEAST,URINE BUDDING RARE /HPF (None Seen)
[2023-09-24] MEDS: METOLAZONE 2.5 MG TABLET PO SCH (17:26)
[2023-09-25] VITALS (21 sets, daily range): BP systolic 101–174; BP diastolic 59–104; PULSE 75–98; RESP 18–39; O2SAT 90–100
[2023-09-25 04:24] LABS: BASOPHILS # (AUTO) 0.05 K/uL (0.00-0.20); BASOPHILS % (AUTO) 0.2 % (0.0-5.0); HEMATOCRIT 24.8 % (36-48); IMMATURE GRANULOCYTE ABSOLUTE 0.64 K/uL (0-1); LYMPHOCYTES # (AUTO) 0.2 K/uL (1.0-4.8); LYMPHOCYTES % (AUTO) 0.7 % (21.0-51.0); MEAN CORPUSCULAR HEMOGLOBIN 30.4 pg (27.0-33.0); MEAN CORPUSCULAR HGB CONC 33.1 g/dL (32.0-36.0); MEAN CORPUSCULAR VOLUME 91.9 fL (79-99); MONOCYTES # (AUTO) 1.2 K/uL (0.1-1.0); NEUTROPHILS # (AUTO) 27.5 K/uL (1.8-7.7); NEUTROPHILS % (AUTO) 92.9 % (40.0-77.0); PLATELET COUNT (AUTO) 211 K/uL (130-400); RED CELL DISTRIBUTION WIDTH 18.1 % (11.0-15.5); WHITE BLOOD COUNT (AUTO) 29.6 K/uL (4.8-10.8)
[2023-09-25 04:49] LABS: ALBUMIN 1.6 g/dL (3.5-5.0); BILIRUBIN,TOTAL 0.4 mg/dL (0.2-1.0); POTASSIUM 4.8 mmol/L (3.5-5.1); TOTAL PROTEIN, SERUM 4.4 g/dL (6.0-8.3)
[2023-09-25] MEDS: METOLAZONE 2.5 MG TABLET PO SCH (09:27)
[2023-09-25] MEDS ORDERED: METOLAZONE 2.5 MG TABLET PO SCH (13:30)
[2023-09-25] MEDS: METOPROLOL TARTRATE 50 MG TAB PO SCH (13:55)
[2023-09-25 16:36] LABS: APPEARANCE,URINE CLOUDY (CLEAR); BILIRUBIN,URINE NEGATIVE (NEGATIVE); COLOR,URINE COLORLESS (YELLOW); GLUCOSE, URINE (UA) NEGATIVE (NEGATIVE); KETONES,URINE NEGATIVE (NEGATIVE); LEUKOCYTE ESTERASE ,URINE NEGATIVE Leu/uL (NEGATIVE); NITRATE,URINE NEGATIVE (NEGATIVE); OCCULT BLOOD,URINE MODERATE (NEGATIVE); PH,URINE 5.5 (5.0-8.0); PROTEIN,URINE NEGATIVE (NEGATIVE); UROBILINOGEN,URINE 0.2 mg/dL (0.2-1.0)
[2023-09-25 16:37] LABS: CHLORIDE,URINE RANDOM 163 mmol/L (110-250); CREATININE,URINE RANDOM 5.58 mg/dL (30-135); POTASSIUM,URINE RANDOM 16 mmol/L (25-125); SODIUM,URINE RANDOM 151 mmol/l (40-220)
[2023-09-25 16:52] LABS: ADD UA MICROSCOPIC YES
[2023-09-25 16:53] LABS: BACTERIA,URINE RARE /HPF (None Seen); MUCUS,URINE RARE LPF (None Seen); WBC,URINE 0-1 /HPF (0-1)
[2023-09-26] VITALS (17 sets, daily range): BP systolic 146–165; BP diastolic 71–81; PULSE 70–92; RESP 16–34; O2SAT 92–100
[2023-09-26 02:04] LABS: BASOPHILS # (AUTO) 0.07 K/uL (0.00-0.20); BASOPHILS % (AUTO) 0.2 % (0.0-5.0); EOSINOPHILS # (AUTO) 0.02 K/uL (0.00-0.70); EOSINOPHILS % (AUTO) 0.1 % (0.0-8.0); HEMATOCRIT 28.6 % (36-48); IMMATURE GRANULOCYTE ABSOLUTE 0.59 K/uL (0-1); LYMPHOCYTES # (AUTO) 0.2 K/uL (1.0-4.8); LYMPHOCYTES % (AUTO) 0.6 % (21.0-51.0); MEAN CORPUSCULAR HGB CONC 31.5 g/dL (32.0-36.0); MEAN CORPUSCULAR VOLUME 92.3 fL (79-99); MONOCYTES # (AUTO) 1.7 K/uL (0.1-1.0); MONOCYTES % (AUTO) 4.6 % (3.0-13.0); NEUTROPHILS # (AUTO) 34.2 K/uL (1.8-7.7); NEUTROPHILS % (AUTO) 92.9 % (40.0-77.0); PLATELET COUNT (AUTO) 211 K/uL (130-400); RED CELL DISTRIBUTION WIDTH 17.7 % (11.0-15.5)
[2023-09-26 02:06] LABS: WHITE BLOOD COUNT (AUTO) 36.8 K/uL (4.8-10.8)
[2023-09-26 02:17] LABS: ABG BASE EXCESS 2.2 mmol/L (-2.0-3.0); ABG HCO3 27.3 mmol/L (21.0-28.0); ABG PCO2 44 mmHg (32-45); ABG PH 7.413 (7.35-7.450); PO2, ARTERIAL BG 55.2 mmHg (83.0-108.0); VENT MODE, BG AVAPS MAX P 30 (ROOM AIR)
[2023-09-26 02:19] LABS: ALBUMIN 1.8 g/dL (3.5-5.0); BILIRUBIN,TOTAL 0.4 mg/dL (0.2-1.0); CREATININE 0.9 mg/dL (0.5-1.0); MAGNESIUM 1.6 mg/dL (1.80-2.40); PHOSPHORUS 3.9 mg/dL (2.5-4.9); POTASSIUM 4.7 mmol/L (3.5-5.1); TOTAL PROTEIN, SERUM 4.9 g/dL (6.0-8.3)
[2023-09-26 02:56] LABS: BAND NEUTROPHILS % (MANUAL) 4 % (0-2); LYMPHOCYTES % (MANUAL) 1 % (22-44); MAN.DIFF COMMENT-IMPRESSION MANUAL DIFFERENTIAL; MONOCYTES % (MANUAL) 1 % (2-9); SEGMENTED NEUTROPHILS % 94 % (40-70); TOTAL CELLS COUNTED 100
[2023-09-26] MEDS: FUROSEMIDE 40MG VIAL IV ONE (03:49)
[2023-09-26] MEDS: MAGNESIUM 2GM PREMIX 50ML 50 ML IV PRN (06:37)
[2023-09-26] MEDS ORDERED: METOLAZONE 2.5 MG TABLET PO SCH (13:00)
[2023-09-26] MEDS: DEXTROSE 50%-WATER 50 ML DISP.SYRIN IV PRN (16:25)
== END 2023-09-26 21:20 | DRG 871 ==
LOC: EDH 12:11 → EDHIP 15:18 → 2CH 17:06 → 2DH 09-25 11:19
PROVIDERS: ADMIT Internal Medicine; ATTEND Internal Medicine
PROC: 5A09357 Assistance with Respiratory Ventilation, Less than 24 Consecutive Hours, Continuous Positive Airway Pressure (ICD-10-PCS; 2023-09-13)
PROC: 5A0935A Assistance with Respiratory Ventilation, Less than 24 Consecutive Hours, High Flow/Velocity Cannula (ICD-10-PCS; 2023-09-13)
PROC: 02HV33Z Insertion of Infusion Device into Superior Vena Cava, Percutaneous Approach (ICD-10-PCS; principal; 2023-09-14)
PROC: B548ZZA Ultrasonography of Superior Vena Cava, Guidance (ICD-10-PCS; 2023-09-14)
PROC: 5A09357 Assistance with Respiratory Ventilation, Less than 24 Consecutive Hours, Continuous Positive Airway Pressure (ICD-10-PCS; 2023-09-14)
PROC: 5A0935A Assistance with Respiratory Ventilation, Less than 24 Consecutive Hours, High Flow/Velocity Cannula (ICD-10-PCS; 2023-09-14)
PROC: 5A09357 Assistance with Respiratory Ventilation, Less than 24 Consecutive Hours, Continuous Positive Airway Pressure (ICD-10-PCS; 2023-09-15)
PROC: 0BH17EZ Insertion of Endotracheal Airway into Trachea, Via Natural or Artificial Opening (ICD-10-PCS; 2023-09-16)
PROC: 5A1935Z Respiratory Ventilation, Less than 24 Consecutive Hours (ICD-10-PCS; 2023-09-16)
PROC: 5A09357 Assistance with Respiratory Ventilation, Less than 24 Consecutive Hours, Continuous Positive Airway Pressure (ICD-10-PCS; 2023-09-16)
PROC: 0BJ08ZZ Inspection of Tracheobronchial Tree, Via Natural or Artificial Opening Endoscopic (ICD-10-PCS; 2023-09-19)
PROC: 5A1935Z Respiratory Ventilation, Less than 24 Consecutive Hours (ICD-10-PCS; 2023-09-20)
PROC: 5A09357 Assistance with Respiratory Ventilation, Less than 24 Consecutive Hours, Continuous Positive Airway Pressure (ICD-10-PCS; 2023-09-21)
PROC: 30233N1 Transfusion of Nonautologous Red Blood Cells into Peripheral Vein, Percutaneous Approach (ICD-10-PCS; 2023-09-24)
PROC: 5A09357 Assistance with Respiratory Ventilation, Less than 24 Consecutive Hours, Continuous Positive Airway Pressure (ICD-10-PCS; 2023-09-24)
PROC: 5A0935A Assistance with Respiratory Ventilation, Less than 24 Consecutive Hours, High Flow/Velocity Cannula (ICD-10-PCS; 2023-09-24)
PROC: 5A09357 Assistance with Respiratory Ventilation, Less than 24 Consecutive Hours, Continuous Positive Airway Pressure (ICD-10-PCS; 2023-09-25)
PROC: 5A0935A Assistance with Respiratory Ventilation, Less than 24 Consecutive Hours, High Flow/Velocity Cannula (ICD-10-PCS; 2023-09-25)
PROC: 5A1945Z Respiratory Ventilation, 24-96 Consecutive Hours (ICD-10-PCS; 2023-09-25)
PROC: 5A09357 Assistance with Respiratory Ventilation, Less than 24 Consecutive Hours, Continuous Positive Airway Pressure (ICD-10-PCS; 2023-09-26)
DX: A41.50 Gram-negative sepsis, unspecified (principal); G93.41 Metabolic encephalopathy; J18.9 Pneumonia, unspecified organism; J96.21 Acute and chronic respiratory failure with hypoxia; J96.22 Acute and chronic respiratory failure with hypercapnia; N17.0 Acute kidney failure with tubular necrosis; R65.21 Severe sepsis with septic shock; I21.A1 Myocardial infarction type 2; J44.1 Chronic obstructive pulmonary disease with (acute) exacerbation; E87.29 Other acidosis; I13.0 Hypertensive heart and chronic kidney disease with heart failure and stage 1 through stage 4 chronic kidney disease, or unspecified chronic kidney disease; J44.0 Chronic obstructive pulmonary disease with (acute) lower respiratory infection; E44.0 Moderate protein-calorie malnutrition; E87.0 Hyperosmolality and hypernatremia; Z16.24 Resistance to multiple antibiotics; I48.19 Other persistent atrial fibrillation; I50.32 Chronic diastolic (congestive) heart failure; F10.10 Alcohol abuse, uncomplicated; K21.9 Gastro-esophageal reflux disease without esophagitis; N18.2 Chronic kidney disease, stage 2 (mild); Z20.822 Contact with and (suspected) exposure to COVID-19; D64.9 Anemia, unspecified; D69.59 Other secondary thrombocytopenia; E78.00 Pure hypercholesterolemia, unspecified; E83.42 Hypomagnesemia; E88.09 Other disorders of plasma-protein metabolism, not elsewhere classified; F17.210 Nicotine dependence, cigarettes, uncomplicated; J43.9 Emphysema, unspecified; Z74.01 Bed confinement status; Z79.01 Long term (current) use of anticoagulants; Z79.899 Other long term (current) drug therapy; Z86.73 Personal history of transient ischemic attack (TIA), and cerebral infarction without residual deficits; Z99.81 Dependence on supplemental oxygen
CPT/HCPCS: 31500; 36415; 36430; 36600; 70450; 70544; 70551; 71045; 71250; 74230; 76700; 80048; 80051; 80053; 80202; 81001; 82435; 82570; 82803; 82947; 82948; 83036; 83540; 83550; 83605; 83735; 83880; 83935; 84100; 84132; 84145; 84295; 84443; 84484; 85018; 85025; 85027; 85610; 85730; 86850; 86900; 86901; 86923; 87040; 87071; 87077; 87088; 87186; 87205; 87635; 87641; 87804; 92610; 92611; 93005; 93306; 93880; 93970; 94002; 94003; 94150; 94640; 94660; 94664; 94667; 94668; A4344; B4082; C1751; C1894; C9113; G0378; J0282; J0612; J0692; J1450; J1630; J1644; J1650; J1815; J1940; J1956; J2020; J2060; J2185; J2250; J2371; J2405; J2543; J2765; J2919; J2920; J3010; J3360; J3370; J3411; J3475; J3490; J7030; J7050; J7060; J7070; J7608; P9016; A9900